=== PATIENT | female | born 1960 | race African-American/Black ===

== ENCOUNTER 2023-05-30 22:44 | Inpatient (IN) | payer OTHER ==
[2023-05-30] MEDS ORDERED: SODIUM CHLORIDE 1,000 ML IV STA (23:51)
[2023-05-30] MEDS ORDERED: ONDANSETRON 4 MG/2 ML VIAL IVPUSH ONE (23:51)
[2023-05-30] MEDS ORDERED: ACETAMINOPHEN 1000 MG/100 ML BAG IVPB ONE (23:51)
[2023-05-30] MEDS ORDERED: FAMOTIDINE 20 MG/50 ML IVPB 20 MG/50 ML MG IVPB ONE (23:52)
[2023-05-31] MEDS ORDERED: ACETAMINOPHEN INJECTION 100 ML IVPB ONE (00:20)
[2023-05-31] MEDS ORDERED: FAMOTIDINE 10 MG/ML VIAL IVPB ONE (00:20)
[2023-05-31] MEDS ORDERED: ONDANSETRON 4 MG/2 ML VIAL ONE ×2 (00:20→02:57)
[2023-05-31 00:25] LABS: BASO % 0.5 % (0-2.0); EOS % 0.1 % (0-4.5); HEMATOCRIT 35.4 % (32.4-45.2); HEMOGLOBIN 11.6 GM/dL (10.7-15.3); LYMPH % 29.1 % (8-40); MCH 25.8 pg (25.7-33.7); MCHC 32.7 g/dl (32.0-36.0); MEAN PLT VOLUME 7.2 fl (7.5-11.1); MONO % 4.4 % (3.8-10.2); NEUT % 65.9 % (42.8-82.8); PLATELET COUNT 238 10^3/uL (134-434); RBC 4.48 M/mm3 (3.60-5.2); RDW 16.8 % (11.6-15.6); WHITE BLOOD COUNT 5.5 K/mm3 (4.0-10.0)
[2023-05-31 00:55] LABS: POTASSIUM 3.4 mmol/L (3.5-5.1)
[2023-05-31 00:57] LABS: ALBUMIN 3.8 g/dl (3.4-5.0); BLOOD UREA NITROGEN 10.7 mg/dL (7-18); CALCIUM 9.6 mg/dL (8.5-10.1)
[2023-05-31 01:00] LABS: CREATININE 0.8 mg/dL (0.55-1.3)
[2023-05-31 01:02] LABS: BILIRUBIN,TOTAL 0.7 mg/dL (0.2-1); TOT PROT 7.5 g/dl (6.4-8.2)
[2023-05-31 01:44] LABS: EPI CELLS >36 /uL (0-25.1); HYALINE CASTS 1 /uL (0-3.1); PH,URINE 8.5 (5.0-8.0); URINE APPEARANCE CLEAR; URINE BACTERIA 1153 /uL (0-1359); URINE BILIRUBIN NEGATIVE (NEGATIVE); URINE COLOR YELLOW; URINE GLUCOSE (UA) NEGATIVE (NEGATIVE); URINE KETONE 2+ (NEGATIVE); URINE LEUK ESTERASE NEGATIVE (NEGATIVE); URINE NITRITE NEGATIVE (NEGATIVE); URINE PROTEIN 1+ (NEGATIVE); URINE RBC 35 /uL (0-23.9); URINE UROBILINOGEN 0.2 mg/dL (0.2-1.0); URINE WBC 11 /uL (0-25.8)
[2023-05-31] MEDS ORDERED: ONDANSETRON 4 MG/2 ML VIAL IVPB ONE (02:56)
[2023-05-31] MEDS ORDERED: METOCLOPRAMIDE HCL INJECTION 10 MG/2 ML VIAL IVPUSH ONE (03:03)
[2023-05-31] MEDS ORDERED: METOCLOPRAMIDE HCL INJECTION 10 MG/2 ML VIAL ONE (03:04)
[2023-05-31] MEDS ORDERED: PIPERACILLIN/TAZOB 3.375 GM 3.375 GM in DEXTROSE 5%-WATER - 50 ML IVPB ONE (03:16)
[2023-05-31] MEDS ORDERED: morphine CARPU-JECT 4 MG/1 ML DISP.SYRIN IVPUSH ONE (03:24)
[2023-05-31] MEDS ORDERED: PIPERACILLIN/TAZOB 3.375 GM 3.375 GM/50 ML BAG IVPB ONE (03:28)
[2023-05-31 06:08] LABS: BASO % 0.4 % (0-2.0); HEMATOCRIT 35.4 % (32.4-45.2); HEMOGLOBIN 11.4 GM/dL (10.7-15.3); LYMPH % 20.2 % (8-40); MCH 25.9 pg (25.7-33.7); MCHC 32.1 g/dl (32.0-36.0); MEAN CELL VOLUME 80.6 fl (80-96); MEAN PLT VOLUME 7.5 fl (7.5-11.1); MONO % 3.3 % (3.8-10.2); NEUT % 76.1 % (42.8-82.8); PLATELET COUNT 228 10^3/uL (134-434); RBC 4.39 M/mm3 (3.60-5.2); RDW 17.3 % (11.6-15.6); WHITE BLOOD COUNT 5.4 K/mm3 (4.0-10.0)
[2023-05-31 06:17] LABS: POTASSIUM 3.5 mmol/L (3.5-5.1)
[2023-05-31 06:19] LABS: ALBUMIN 3.6 g/dl (3.4-5.0); BLOOD UREA NITROGEN 9.6 mg/dL (7-18)
[2023-05-31 06:24] LABS: BILIRUBIN,DIRECT 0.2 mg/dL (0.0-0.2); BILIRUBIN,TOTAL 0.8 mg/dL (0.2-1); CREATININE 0.7 mg/dL (0.55-1.3)
[2023-05-31] MEDS: SODIUM CHLORIDE 1,000 ML IV SCH ×2 (06:46→11:11)
[2023-05-31] MEDS ORDERED: AMPICILLIN NA/SULBACTAM NA 1.5 GM in SODIUM CHLORIDE 100 ML IVPB SCH (10:00)
[2023-05-31] MEDS ORDERED: ACETAMINOPHEN 325 MG TABLET (FP) PO PRN ×3 (12:51→12:52)
[2023-05-31] MEDS ORDERED: oxyCODONE HCL 5 MG TABLET PO PRN (12:58)
[2023-05-31] MEDS: oxyCODONE HCL 5 MG TABLET PO PRN ×2 (13:16→22:50)
[2023-06-01] MEDS ORDERED: ONDANSETRON 4 MG/2 ML VIAL IVPUSH PRN (00:41)
[2023-06-01] MEDS: SODIUM CHLORIDE 1,000 ML IV SCH ×2 (06:48→20:49)
[2023-06-01] MEDS: oxyCODONE HCL 5 MG TABLET PO PRN ×3 (08:18→21:51)
[2023-06-01 09:49] LABS: BASO % 0.8 % (0-2.0); EOS % 0.3 % (0-4.5); HEMATOCRIT 32.8 % (32.4-45.2); HEMOGLOBIN 10.5 GM/dL (10.7-15.3); LYMPH % 37.6 % (8-40); MCH 26.1 pg (25.7-33.7); MCHC 32.1 g/dl (32.0-36.0); MEAN CELL VOLUME 81.4 fl (80-96); MEAN PLT VOLUME 7.8 fl (7.5-11.1); MONO % 7.9 % (3.8-10.2); NEUT % 53.4 % (42.8-82.8); PLATELET COUNT 204 10^3/uL (134-434); RBC 4.04 M/mm3 (3.60-5.2); RDW 16.7 % (11.6-15.6); WHITE BLOOD COUNT 5.2 K/mm3 (4.0-10.0)
[2023-06-01 10:02] LABS: POTASSIUM 3.4 mmol/L (3.5-5.1)
[2023-06-01 10:11] LABS: CALCIUM 8.9 mg/dL (8.5-10.1)
[2023-06-01 10:12] LABS: ALBUMIN 3.2 g/dl (3.4-5.0); BLOOD UREA NITROGEN 10.7 mg/dL (7-18)
[2023-06-01 10:14] LABS: CREATININE 0.6 mg/dL (0.55-1.3)
[2023-06-01 10:16] LABS: BILIRUBIN,TOTAL 1.1 mg/dL (0.2-1); TOT PROT 6.4 g/dl (6.4-8.2)
[2023-06-02] MEDS: oxyCODONE HCL 5 MG TABLET PO PRN ×3 (08:52→21:40)
[2023-06-02] MEDS ORDERED: BUPIVACAINE HCL/PF 0.25% (2.5MG/ML) 10 ML VIAL ONE (09:22)
[2023-06-02] MEDS: SODIUM CHLORIDE 1,000 ML IV SCH (10:30)
[2023-06-02 10:31] LABS: BASO % 0.8 % (0-2.0); EOS % 1.2 % (0-4.5); HEMATOCRIT 34.3 % (32.4-45.2); HEMOGLOBIN 10.7 GM/dL (10.7-15.3); LYMPH % 35.2 % (8-40); MCH 25.2 pg (25.7-33.7); MCHC 31.3 g/dl (32.0-36.0); MEAN CELL VOLUME 80.5 fl (80-96); MEAN PLT VOLUME 7.6 fl (7.5-11.1); MONO % 7.2 % (3.8-10.2); NEUT % 55.6 % (42.8-82.8); PLATELET COUNT 203 10^3/uL (134-434); RBC 4.27 M/mm3 (3.60-5.2); RDW 16.8 % (11.6-15.6); WHITE BLOOD COUNT 4.5 K/mm3 (4.0-10.0)
[2023-06-02 10:35] LABS: INR 1.09 (0.83-1.09); PROTHROMBIN TIME (PATIENT) 12.6 SEC (9.7-13.0)
[2023-06-02 10:47] LABS: POTASSIUM 3.2 mmol/L (3.5-5.1)
[2023-06-02 10:52] LABS: ALBUMIN 3.2 g/dl (3.4-5.0); CALCIUM 8.5 mg/dL (8.5-10.1); MAGNESIUM 1.7 mg/dL (1.8-2.4)
[2023-06-02 10:54] LABS: CREATININE 0.7 mg/dL (0.55-1.3)
[2023-06-02 10:56] LABS: BILIRUBIN,TOTAL 1.2 mg/dL (0.2-1); TOT PROT 6.3 g/dl (6.4-8.2)
[2023-06-02] MEDS ORDERED: PROPOFOL 20 ML ONE ×2 (12:31→13:44)
[2023-06-02] MEDS ORDERED: SUCCINYLCHOLINE CHLORIDE 200 MG/10 ML SYRINGE ONE (12:31)
[2023-06-02] MEDS ORDERED: HEPARIN NA (PORCINE) 5,000 UNITS/ML 1ML VIAL SQ ONE (12:43)
[2023-06-02] MEDS ORDERED: cefOXitin SODIUM 2 GM VIAL (RESTRICTED TO ID) IVPB ONE ×2 (12:45→12:49)
[2023-06-02] MEDS ORDERED: ROCURONIUM BROMIDE 50 MG/5 ML SYRINGE ONE (12:48)
[2023-06-02] MEDS ORDERED: INDOCYANINE GREEN 25 MG/10 ML VIAL IVPUSH ONE (12:54)
[2023-06-02] MEDS ORDERED: DEXAMETHASONE SOD PHOSPHATE 4 MG/1 ML VIAL ONE (13:05)
[2023-06-02] MEDS ORDERED: ONDANSETRON 4 MG/2 ML VIAL ONE (13:05)
[2023-06-02] MEDS ORDERED: SUGAMMADEX SODIUM 200 MG/2 ML VIAL ONE (13:10)
[2023-06-02] MEDS ORDERED: BUPIVACAINE HCL/PF 0.25% (2.5MG/ML) 10 ML VIAL IJ ONE (13:45)
[2023-06-02] MEDS ORDERED: ACETAMINOPHEN 1000 MG/100 ML BAG IVPB ONE (14:05)
[2023-06-02] MEDS ORDERED: LACTATED RINGERS SOLUTION 1,000 ML IV SCH (14:15)
[2023-06-02] MEDS ORDERED: ONDANSETRON 4 MG/2 ML VIAL IVPUSH ONE (14:17)
[2023-06-02] MEDS ORDERED: ACETAMINOPHEN 325 MG TABLET (FP) PO STA (14:17)
[2023-06-02] MEDS ORDERED: IBUPROFEN 400 MG TABLET (FP) PO PRN (14:17)
[2023-06-02] MEDS ORDERED: oxyCODONE HCL 5 MG TABLET PO PRN (14:17)
[2023-06-02 14:29] VITALS: BMI 30.1
[2023-06-02] MEDS: LACTATED RINGERS SOLUTION 1,000 ML/1,000 ML INFUS.BAG IV SCH (14:54)
[2023-06-03] MEDS: ACETAMINOPHEN 1000 MG/100 ML BAG IVPB PRN ×3 (00:31→21:08)
[2023-06-03] MEDS: oxyCODONE HCL 5 MG TABLET PO PRN ×2 (08:02→17:48)
[2023-06-03] MEDS: ONDANSETRON 4 MG/2 ML VIAL IVPUSH PRN ×2 (09:44→21:08)
[2023-06-03 15:59] LABS: POTASSIUM 3.1 mmol/L (3.5-5.1)
[2023-06-03 16:00] LABS: CALCIUM 9.2 mg/dL (8.5-10.1)
[2023-06-03 16:01] LABS: ALBUMIN 3.5 g/dl (3.4-5.0); BLOOD UREA NITROGEN 5.2 mg/dL (7-18)
[2023-06-03 16:04] LABS: CREATININE 0.7 mg/dL (0.55-1.3)
[2023-06-03 16:07] LABS: TOT PROT 7.2 g/dl (6.4-8.2)
[2023-06-03] MEDS: LACTATED RINGERS SOLUTION 1,000 ML/1,000 ML INFUS.BAG IV SCH (17:12)
[2023-06-04] MEDS: oxyCODONE HCL 5 MG TABLET PO PRN ×4 (01:57→21:05)
[2023-06-04] MEDS: ENOXAPARIN NA (PORCINE) 40 MG/0.4 ML DISP.SYRIN SQ SCH (09:35)
[2023-06-04] MEDS ORDERED: IBUPROFEN 400 MG TABLET (FP) PO PRN (10:04)
[2023-06-04 10:21] LABS: HEMATOCRIT 36.8 % (32.4-45.2); HEMOGLOBIN 11.4 GM/dL (10.7-15.3); MCH 25.4 pg (25.7-33.7); MCHC 30.9 g/dl (32.0-36.0); MEAN CELL VOLUME 82.1 fl (80-96); MEAN PLT VOLUME 8.1 fl (7.5-11.1); PLATELET COUNT 220 10^3/uL (134-434); RBC 4.48 M/mm3 (3.60-5.2); RDW 16.7 % (11.6-15.6); WHITE BLOOD COUNT 5.3 K/mm3 (4.0-10.0)
[2023-06-04 10:34] LABS: MAGNESIUM 1.7 mg/dL (1.8-2.4)
[2023-06-04 10:38] LABS: PHOSPHOROUS 3.5 mg/dL (2.5-4.9)
[2023-06-04] MEDS: POLYETHYLENE GLYCOL (HEALTHYLAX) 3350 17 GM PACKET PO SCH (15:26)
[2023-06-04 15:47] VITALS: RESP 18
[2023-06-04] MEDS: SENNOSIDES 8.6MG TABLET (FP) PO SCH (21:05)
[2023-06-04] MEDS: ACETAMINOPHEN 1000 MG/100 ML BAG IVPB PRN (23:05)
[2023-06-05] MEDS: oxyCODONE HCL 5 MG TABLET PO PRN ×2 (03:13→09:32)
[2023-06-05] MEDS: POLYETHYLENE GLYCOL (HEALTHYLAX) 3350 17 GM PACKET PO SCH (09:31)
[2023-06-05] MEDS: SENNOSIDES 8.6MG TABLET (FP) PO SCH (09:31)
[2023-06-05] MEDS: ENOXAPARIN NA (PORCINE) 40 MG/0.4 ML DISP.SYRIN SQ SCH (09:33)
[2023-06-05 12:13] VITALS: TEMP 99.5
[2023-06-05 12:52] LABS: POTASSIUM 3.5 mmol/L (3.5-5.1)
[2023-06-05 12:55] LABS: BLOOD UREA NITROGEN 6.1 mg/dL (7-18); MAGNESIUM 1.7 mg/dL (1.8-2.4)
[2023-06-05 12:58] LABS: CREATININE 0.6 mg/dL (0.55-1.3)
[2023-06-05 12:59] LABS: PHOSPHOROUS 3.6 mg/dL (2.5-4.9)
[2023-06-05 13:30] VITALS: BP 142/89; PULSE 62
[2023-06-05] MEDS ORDERED: IBUPROFEN 600 MG TABLET (FP) PO PRN (13:40)
[2023-06-05] MEDS ORDERED: MAGNESIUM SULF 50% (8.12 MEQ/2 ML-1 GM VIAL) IVPB ONE (14:01)
[2023-06-05] MEDS ORDERED: ACETAMINOPHEN 500 MG TABLET (FP) PO ONE (15:00)
[2023-06-05] MEDS ORDERED: MAGNESIUM OXIDE 400 MG TABLET (FP) PO ONE (15:01)
== END 2023-06-05 17:27 | disposition home or self-care (01) | DRG 263 ==
LOC: JER 22:44 → JERBED 05-31 03:24 → J5S 05-31 09:38
PROVIDERS: ADMIT Internal Medicine
PROC: 0WQF0ZZ Repair Abdominal Wall, Open Approach (ICD-10-PCS; 2023-06-02)
PROC: 0FT44ZZ Resection of Gallbladder, Percutaneous Endoscopic Approach (ICD-10-PCS; principal; 2023-06-02 12:45)
PROC: 0YQ54ZZ Repair Right Inguinal Region, Percutaneous Endoscopic Approach (ICD-10-PCS; 2023-06-02 12:45)
DX: K80.12 Calculus of gallbladder with acute and chronic cholecystitis without obstruction (principal); K82.1 Hydrops of gallbladder; F11.20 Opioid dependence, uncomplicated; E87.6 Hypokalemia; K40.90 Unilateral inguinal hernia, without obstruction or gangrene, not specified as recurrent; R10.9 Unspecified abdominal pain
CPT/HCPCS: 36415; 71045-TC-FY; 74177-TC; 76705-TC; 80048; 80053; 80076; 81003; 83036; 83690; 83735; 84100; 84484; 84703; 85025; 85027; 85610; 87086; 88302-TC; 88304-TC; 93005; 93010; 94760; 99285-25; J1644; Q9967